=== PATIENT | male | born 1940 | race Caucasian/White ===

== ENCOUNTER 2016-08-13 16:09 | Emergency (ER) | payer MEDICARE, OTHER ==
[2016-08-13] MEDS ORDERED: MORPHINE SULFATE 4 MG INJ IV ONE (17:20)
[2016-08-13] MEDS ORDERED: Sodium Chloride 0.9% 1000 ML 1,000 ML IV STA (17:20)
--- NOTE | 2016-08-13 17:25 | ERPHSYRPT ---
- History of Present Illness Time Seen by Provider: 08/13/16 17:15 Historian: patient Exam Limitations: no limitations Patient Subjective Stated Complaint: PT REPORTS LEFT SIDED KIDNEY PAIN-WORSENS IF PT ATTEMPTS TO EAT-DENIES DIFFICULTY WITH URINATION-DENIES DIFFICULTY WITH BOWELS Triage Nursing Assessment: PT PINK WARM ET DRY-A & O X 3-ABD ROUND ET NONTENDER TO PALP-BOWEL SOUNDS PRESENT Physician History: 75-year-old white male with history of sleep apnea high blood pressure and rheumatoid arthritis He arrives with complaint of pain and left flank worse with eating symptoms since Saturday morning yesterday. He describes pain as aching and sharp he states every time he tries to eat this hurts worse. 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/.Also with a left knee replacement Timing/Duration: yesterday Activities at Onset: none Quality: aching, sharpness Abdominal Pain Onset Location: flank Pain Radiation: no radiation Severity of Pain-Max: moderate Severity of Pain-Current: moderate Modifying Factors: Improves With: nothing Associated Symptoms: back (left flank pain), other (pain left flank when he eats ), No chest pain, No diaphoresis, No diarrhea, No fever/chills, No fatigue, No headache, No heartburn, No loss of appetite, No nausea, No neck pain, No rash, No shortness of breath, No syncope, No testicular pain, No vomiting, No weakness Previous symptoms: no prior history Allergies/Adverse Reactions: celecoxib [From Celebrex] Allergy (Intermediate, Verified 08/13/16 16:37) Rapid Heart Beat bad dreams Home Medications: Atenolol 50 mg [Tenormin 50 mg] 50 mg PO DAILY 02/11/13 [History] Aspirin 81 mg PO DAILY 08/13/16 [History] Meloxicam 7.5 mg [Mobic 7.5 MG] 7.5 mg PO DAILY 08/13/16 [History] Hx Tetanus, Diphtheria Vaccination/Date Given: No Hx Influenza Vaccination/Date Given: Yes Hx Pneumococcal Vaccination/Date Given: No Immunizations Up to Date: Yes - Review of Systems Constitutional: No Fever, No Chills Eyes: No Symptoms Ears, Nose, & Throat: No Symptoms Respiratory: No Cough, No Dyspnea Cardiac: No Chest Pain, No Edema, No Syncope Abdominal/Gastrointestinal: No Abdominal Pain, No Nausea, No Vomiting, No Diarrhea Genitourinary Symptoms: Flank Pain (left flank pain since yesterday) Musculoskeletal: No Back Pain, No Neck Pain Skin: No Rash Neurological: No Dizziness, No Focal Weakness, No Sensory Changes Psychological: No Symptoms Endocrine: No Symptoms All Other Systems: Reviewed and Negative - Past Medical History Pertinent Past Medical History: Yes Neurological History: No Pertinent History ENT History: No Pertinent History Cardiac History: Hypertension Respiratory History: Sleep Apnea Endocrine Medical History: No Pertinent History Musculoskeletal History: Rheumatoid Arthritis GI Medical History: No Pertinent History History: No Pertinent History Psycho-Social History: No Pertinent History Male Reproductive Disorders: No Pertinent History - Past Surgical History Past Surgical History: Yes Neuro Surgical History: No Pertinent History Cardiac: No Pertinent History Respiratory: No Pertinent History Gastrointestinal: Other Genitourinary: No Pertinent History Musculoskeletal: Amputation Male Surgical History: No Pertinent History Other Surgical History: 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 L KNEE REPLACEMENT. - Social History Smoking Status: Never smoker Exposure to second hand smoke: No Drug Use: none Patient Lives Alone: No - Nursing Vital Signs Nursing Vital Signs: Initial Vital Signs Temperature 98.1 F Temperature Source Oral Pulse Rate 70 Respiratory Rate 14 Blood Pressure [] 138/92 Pain Intensity 0 - Physical Exam General Appearance: mild distress Eye Exam: PERRL/EOMI, eyes nml inspection Ears, Nose, Throat Exam: normal ENT inspection, pharynx normal, moist mucous membranes Neck Exam: normal inspection, non-tender, supple, full range of motion Respiratory Exam: normal breath sounds, lungs clear, No respiratory distress Cardiovascular Exam: regular rate/rhythm, normal heart sounds Gastrointestinal/Abdomen Exam: soft, normal bowel sounds, No tenderness, No rebound Back Exam: normal inspection, normal range of motion, CVA tenderness (left flank tenderness) Extremity Exam: normal inspection, normal range of motion, pelvis stable Neurologic Exam: alert, oriented x 3, cooperative, normal mood/affect, nml cerebellar function, sensation nml, No motor deficits Skin Exam: normal color, warm, dry SpO2 Interpretation: normal (98%) SpO2: 98 Oxygen Delivery: Room Air - Course Nursing assessment & vital signs reviewed: Yes - CT Exams Abdomen/Pelvis CT Interpretation: Discussed w/radiologist (CT abdomen and pelvis 3-4 mm left UVJ calculus with 7 mm ureteral prominence and mild hydronephrosis. Additional bilateral renal micral calculi and 5.5 cm right renal cyst. Fatty liver and colonic diverticulosis. Grade to L5 spondylolisthesis with bilateral spondylolysis .) Ordered Tests: Active Orders 24 hr Category Date Time Status IV Insertion STAT Care 08/13/16 17:20 Active ABDOMEN AND PELVIS W/0 CONTRAS [CT] Stat Exams 08/13/16 18:37 Taken AMYLASE Stat Lab 08/13/16 17:41 Completed CBC W DIFF Stat Lab 08/13/16 17:41 Completed CMP Stat Lab 08/13/16 17:41 Completed LIPASE Stat Lab 08/13/16 17:41 Completed UA W/ MICROSCOPIC Stat Lab 08/13/16 18:10 Completed Medication Summary Discontinued Medications Generic Name Dose Route Start Last Admin Trade Name Freq PRN Reason Stop Dose Admin Sodium Chloride 1,000 mls @ 999 mls/hr 08/13/16 17:20 08/13/16 18:09 Sodium Chloride 0.9% 1000 Ml IV 08/13/16 18:20 999 mls/hr .Q1H1M STA Administration Sodium Chloride Confirm 08/13/16 17:54 Sodium Chloride 0.9% 1000 Ml Administered 08/13/16 17:55 Dose 1,000 mls @ ud .ROUTE .STK-MED ONE Morphine Sulfate 4 mg 08/13/16 17:20 08/13/16 18:09 Morphine Sulfate 4 Mg Inj IV 08/13/16 17:21 4 mg STAT ONE Administration Morphine Sulfate Confirm 08/13/16 17:54 Morphine Sulfate 4 Mg Inj Administered 08/13/16 17:55 Dose 4 mg .ROUTE .STK-MED ONE Lab/Rad Data: Laboratory Result Diagrams 08/13/16 17:41 08/13/16 17:41 Laboratory Results 08/13/16 08/13/16 08/13/16 Range/Units 18:10 17:41 17:41 WBC 8.4 (4.0-10.5) K/mm3 RBC 4.74 (4.1-5.6) M/mm3 Hgb 14.5 (12.5-18.0) gm/dl Hct 43.2 (42-50) % MCV 91.1 (78-100) fl MCH 30.6 (26-32) pg MCHC 33.6 (32-36) g/dl RDW 14.3 H (11.5-14.0) % Plt Count 155 (150-450) K/mm3 MPV 9.9 H (6-9.5) fl Gran % 70.5 H (36.0-66.0) % Lymphocytes % 19.9 L (24.0-44.0) % Monocytes % 8.9 (0.0-12.0) % Eosinophils % 0.6 (0.00-5.0) % Basophils % 0.1 (0.0-0.4) % Basophils # 0.01 (0-0.4) Sodium 137 (136-145) mEq/L Potassium 4.0 (3.5-5.1) mEq/L Chloride 103 (98-107) mEq/L Carbon Dioxide 22.3 (21-32) mEq/L Anion Gap 15.6 H (5-15) MEQ/L BUN 28 H (9-20) mg/dL Creatinine 1.55 H (0.55-1.30) mg/dl Estimated GFR 46 ML/MIN Glucose 95 (70-110) MG/DL Calcium 8.7 (8.5-10.1) mg/dL Total Bilirubin 0.4 (0.2-1.0) mg/dL AST 25 (15-37) U/L ALT 22 (12-78) U/L Alkaline Phosphatase 83 (46-116) U/L Serum Total Protein 7.4 (6.4-8.2) gm/dL Albumin 3.3 L (3.4-5.0) g/dL Amylase 45 (25-115) U/L Lipase 133 (73-393) U/L Ur Collection Type CLEAN CATCH Urine Color YELLOW (YELLOW) Urine Appearance CLEAR (CLEAR) Urine pH 6.0 (5-6) Ur Specific [place] >=1.030 (1.005-1.025) Urine Protein TRACE (Negative) Urine Glucose (UA) NEGATIVE (NEGATIVE) mg/dL Urine Ketones SMALL-15 (NEGATIVE) Urine Nitrite NEGATIVE (NEGATIVE) Urine Bilirubin NEGATIVE (NEGATIVE) Urine Urobilinogen 0.2 (0-1) mg/dL Urine WBC (Auto) NEGATIVE (NEGATIVE) Urine RBC (Auto) MODERATE (0-5) Willis/ul Urine Microscopic RBC 50-100 (0-2) /HPF Ur Epithelial Cells FEW (FEW) /HPF Urine Bacteria FEW (NEGATIVE) /HPF Specimen Received [id number] - Progress Progress: improved Progress Note: 08/13/16 19:57 Patient is pain free after morphine 4 mg and a liter of normal saline. Patient's CT abdomen and pelvis shows a 3-4 mm left UVJ calculus with 7 mm prominence of the left ureter with mild hydronephrosis. Will plan to place patient on Flomax 0.4 mg orally daily [place] 5/3/25 #20 one to 2 orally every 4-6 hours as needed for pain. Will have patient contact Dr. Aguilar tomorrow morning to arrange follow-up. Patient is to strain all his urine. He has been advised to return for severe symptoms or intractable pain. - Departure Time of Disposition: 19:59 Departure Disposition: Home Clinical Impression: Left flank pain Urolithiasis Qualifiers: Urinary calculus location: ureter Qualified Code(s): N20.1 - Calculus of ureter Condition: Fair Critical Care Time: No Referrals: DORIS DEL VALLE MD [Primary Care Provider] - STIVEN AGUILAR [COURTESY STAFF] - Instructions: Kidney Stones Additional Instructions: Return home. Plenty of fluids. Strain all urine. [place] 5/325 #20 one to 2 orally every 4-6 hours as needed for pain. Flomax 0.4 mg orally daily #10. Follow-up with Dr. Aguilar tomorrow morning call for an appointment and follow-up. Return for acute distress or for severe symptoms. Return for intractable pain. Or problems Prescriptions: Hydrocodone Bit/Acetaminophen [[place] 5/325Mg] 1 - 2 tab PO Q4-6HPRN PRN #20 tablet PRN Reason: Pain Tamsulosin HCl 0.4 mg [Flomax 0.4 MG] 0.4 mg PO DAILY #10 cap
[2016-08-13 17:51] LABS: BASOPHIL % 0.1 % (0.0-0.4); Eosinophil % 0.6 % (0.00-5.0); Granulocytes % 70.5 % (36.0-66.0); Lymphocytes % 19.9 % (24.0-44.0); Mean Cell Volume 91.1 fl (78-100); Mean Corpuscular Hemoglobin 30.6 pg (26-32); Mean Platelet Volume 9.9 fl (6-9.5); Monocytes % 8.9 % (0.0-12.0); Platelet Count 155 K/mm3 (150-450); Red Blood Count 4.74 M/mm3 (4.1-5.6); Red Cell Distribution Width 14.3 % (11.5-14.0); White Blood Count 8.4 K/mm3 (4.0-10.5)
[2016-08-13] MEDS ORDERED: Sodium Chloride 0.9% 1000 ML 1,000 ML ONE (17:54)
[2016-08-13] MEDS ORDERED: MORPHINE SULFATE 4 MG INJ ONE (17:54)
[2016-08-13 18:04] LABS: ALBUMIN 3.3 g/dL (3.4-5.0); ANION GAP 15.6 MEQ/L (5-15); BILIRUBIN,TOTAL 0.4 mg/dL (0.2-1.0); Carbon Dioxide 22.3 mEq/L (21-32); Total Protein 7.4 gm/dL (6.4-8.2)
[2016-08-13 18:34] LABS: COMPLETE URINE MICROSCOPIC? YES; Collection Type CLEAN CATCH; Epithelial Cells FEW /HPF (FEW)
[2016-08-13 18:35] LABS: Bacteria FEW /HPF (NEGATIVE)
[2016-08-13 19:19] VITALS: BP 138/92; PULSE 70
[2016-08-13 19:52] VITALS: O2SAT 98
--- NOTE | 2016-08-14 08:40 | XRAY ---
Indication: Left flank pain. Hematuria. Multiple contiguous axial images obtained through the abdomen and pelvis without contrast as ordered. Comparison: None Lung bases demonstrates mild bibasilar dependent atelectasis and right infrahilar calcified nodes. Heart is not enlarged. There is a 3-4 mm left UVJ calculus. The proximal ureter is minimally prominent up to 7 mm and there is mild hydronephrosis consistent with partial obstructive uropathy. No perinephric fluid. Additional nonobstructing bilateral renal micro-calculi and a 5.5 cm right renal cyst. Noncontrasted stomach and bowel loops appear nonobstructed. Mild scattered colonic diverticulosis without diverticulitis. Mild fatty liver and chunky benign prostate calcifications. No free fluid/air. Remaining liver, gallbladder, pancreas, spleen, adrenal glands, kidneys, ureters, and bladder appear unremarkable for noncontrast exam. Minimal aortoiliac calcifications without AAA. Osseous structures intact with moderate degenerative changes throughout the spine, L5 spondylolysis with grade 2 spondylolisthesis, and previous right total hip arthroplasty. Impression: 1. 3-4 mm left UVJ calculus producing partial junction as detailed. Additional bilateral renal micro-calculi in incidental right renal cyst. 2. Fatty liver, scattered colonic diverticulosis, and chunky benign prostate calcifications. 3. L5 spondylolysis with grade [address] DI 23.68
== END 2016-08-13 20:09 | disposition home or self-care (01) ==
LOC: ED 16:09
DX: N20.1 Calculus of ureter (principal); R10.9 Unspecified abdominal pain; I10 Essential (primary) hypertension
CPT/HCPCS: 36000; 36415; 74176; 80053; 81000; 82150; 83690; 85025; 96360; 96374; 99283; 99284; J2270

== ENCOUNTER 2022-06-29 22:08 | Observation (INO) | payer MEDICARE, OTHER ==
[2022-06-29] MEDS ORDERED: Sodium Chloride 0.9% 1000 ML 1,000 ML IV SCH (23:00)
[2022-06-29 23:14] LABS: Absolute Neutrophil Ct (ANC) 5.26 x10^3/uL (1.4-6.9); Basophil (Absolute #) 0.03 x10^3/uL (0-0.4); Eosinophil % 0.1 % (0.00-5.0); Eosinophil (Absolute #) 0.01 x10^3/uL (0-0.5); Hematocrit 44.6 % (42-50); Hemoglobin 14.9 g/dL (12.5-18.0); Lymphocyte (Absolute #) 1.32 x10^3/uL (1.0-4.6); Lymphocytes % 17.9 % (24.0-44.0); Mean Cell Volume 96.1 fL (78-100); Mean Corpuscular Hemoglobin 32.1 pg (26-32); Mean Corpuscular Hgb Concent. 33.4 g/dL (32-36); Mean Platelet Volume 10.2 fL (7.5-11.0); Monocyte (Absolute #) 0.74 x10^3/uL (0.0-1.3); Neutrophil % 71.3 % (36.0-66.0); Platelet Count 146 x10^3/uL (150-450); Red Blood Count 4.64 x10^6/uL (4.1-5.6); Red Cell Distribution Width 13.8 % (11.5-14.0); White Blood Count 7.4 x10^3/uL (4.0-10.5)
[2022-06-29 23:36] LABS: D-DIMER QUANTITATIVE 0.39 mg/L (0.0-0.50); INR 1.07 (0.8-3.0); PROTIME 11.3 SECONDS (9.4-12.5); PTT 27.6 SECONDS (25.1-36.5)
[2022-06-29 23:43] LABS: ALKALINE PHOSPHATASE 104 U/L (38-126); AMYLASE 93 U/L (30-110); ANION GAP 9.5 MEQ/L (5-15); BLOOD UREA NITROGEN 21 mg/dL (9-20); CHLORIDE 101 mmol/L (98-107); Calcium 8.2 mg/dL (8.4-10.2); Carbon Dioxide 25 mmol/L (22-30); Creatinine 1 0.91 mg/dL (0.66-1.25); EST GLOMERULAR FILTRATION RATE > 60.0 ML/MIN; Glucose 101 mg/dL (74-106); LIPASE 218 U/L (23-300); MAGNESIUM 2.1 mg/dL (1.6-2.3); NT PRO BNP 928 pg/mL (0-1800); Potassium 3.9 mmol/L (3.5-5.1); SGOT/AST 23 U/L (17-59); SGPT/ALT 21 U/L (0-50); SODIUM 132 mmol/L (137-145); Total Protein 7.6 g/dL (6.3-8.2)
[2022-06-29 23:50] LABS: INFLUENZA A NEGATIVE (NEGATIVE); INFLUENZA B NEGATIVE (NEGATIVE); RESPIRATORY SYNCTIAL VIRUS NEGATIVE (Negative)
[2022-06-30 00:03] LABS: SARS-CoV-2 Xpert Express POSITIVE (NEGATIVE)
--- NOTE | 2022-06-30 00:27 | ERPHSYRPT ---
- History of Present Illness Time Seen by Provider: 06/29/22 22:30 Source: patient, family Patient Subjective Stated Complaint: pt states he has been having cough, congestion since yesterday. had a positive covid home test tonight. Triage Nursing Assessment: pt alert and oriented, answers questions approp. pt ambulatory with steady gait noted. respirations nonlabored with lungs cta. skin warm and dry. nonpitting edema noted to bilat lower ext, pt states is normal for him. lungs cta bilat. occasional hacking cough noted. Physician History: Patient is an 81-year-old white male with a complaint of cough for several days he actually started with cold symptoms yesterday. He has a nonproductive cough he denies any chest pain he denies any shortness of breath. He took a home COVID test and was found to be positive. He has been somewhat dizzy. Timing/Duration: yesterday Cough Quality/Degree: dry cough Possible Cause: illness exposure Modifying Factors: Improves With: nothing Associated Symptoms: fever, cough, dizziness, lightheadedness Allergies/Adverse Reactions: celecoxib [From Celebrex] Allergy (Intermediate, Verified 06/29/22 22:39) Rapid Heart Beat bad dreams Home Medications: Meloxicam 7.5 mg [Mobic 7.5 MG] 15 mg PO DAILY 08/13/16 [History] Loratadine 10 mg [Claritin 10 mg] 10 mg PO DAILY 06/29/22 [History] hydroCHLOROthiazide [Hydrochlorothiazide] 12.5 mg PO DAILY 06/29/22 [History] Hx Tetanus, Diphtheria Vaccination/Date Given: Yes Hx Influenza Vaccination/Date Given: Yes Hx Pneumococcal Vaccination/Date Given: Yes Immunizations Up to Date: Yes Travel Risk - International Travel Have you traveled outside of the country in past 3 weeks: No - Coronavirus Screening Are you exhibiting any of the following symptoms?: Yes Symptoms: Fever, Cough: New Onset, Loss of Taste or Smell, Headaches/Body Aches/Fatigue Close contact with a COVID-19 positive Pt in past 14-21 Days: No - Vaccine Status Have you recieved a Covid-19 vaccination: Yes Tape Stringer: Moderna - Vaccination Dates Date of 2cond Vaccination (if applicable): 08/02/20 - Review of Systems Constitutional: No Fever, No Chills Eyes: No Symptoms Ears, Nose, & Throat: No Symptoms Respiratory: Cough, No Dyspnea Cardiac: No Chest Pain, No Edema, No Syncope Abdominal/Gastrointestinal: No Abdominal Pain, No Nausea, No Vomiting, No Diarrhea Genitourinary Symptoms: No Dysuria Musculoskeletal: No Back Pain, No Neck Pain Skin: No Rash Neurological: No Dizziness, No Focal Weakness, No Sensory Changes Psychological: No Symptoms Endocrine: No Symptoms All Other Systems: Reviewed and Negative - Past Medical History Pertinent Past Medical History: Yes Neurological History: No Pertinent History ENT History: No Pertinent History Cardiac History: Hypertension Respiratory History: Sleep Apnea Endocrine Medical History: No Pertinent History Musculoskeletal History: Rheumatoid Arthritis GI Medical History: No Pertinent History History: Other Psycho-Social History: No Pertinent History Male Reproductive Disorders: No Pertinent History Other Medical History: kidney stones - Past Surgical History Past Surgical History: Yes Neuro Surgical History: No Pertinent History Cardiac: No Pertinent History Respiratory: No Pertinent History Gastrointestinal: Other Genitourinary: No Pertinent History Musculoskeletal: Amputation Male Surgical History: No Pertinent History Other Surgical History: 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 L KNEE REPLACEMENT. bilat hip replacement - Social History Smoking Status: Never smoker Exposure to second hand smoke: No Drug Use: none Patient Lives Alone: No - Nursing Vital Signs Nursing Vital Signs: Initial Vital Signs Temperature 98.8 F 06/29/22 22:16 Pulse Rate 87 06/29/22 22:16 Respiratory Rate 20 06/29/22 22:16 Blood Pressure 129/97 06/29/22 22:16 O2 Sat by Pulse Oximetry 99 06/29/22 22:16 Pain Scale Pain Intensity 0 - Physical Exam General Appearance: mild distress, alert Eye Exam: PERRL/EOMI, eyes nml inspection Ears, Nose, Throat Exam: normal ENT inspection, TMs normal, pharynx normal, moist mucous membranes Neck Exam: normal inspection, non-tender, supple, full range of motion Respiratory Exam: normal breath sounds, lungs clear, No respiratory distress Cardiovascular Exam: irregular, other (Atrial fibs noted on the monitor) Gastrointestinal/Abdomen Exam: soft, No tenderness Back Exam: normal inspection, No CVA tenderness, No vertebral tenderness Extremity Exam: normal inspection, normal range of motion Neurologic Exam: alert, oriented x 3, cooperative, normal mood/affect, sensation nml, No motor deficits Skin Exam: normal color, warm, dry, No rash Lymphatic Exam: No adenopathy SpO2: 96 - Course Nursing assessment & vital signs reviewed: Yes EKG Interpreted by Me: RATE (94), A-fib, NORMAL AXIS, Non-specific ST Changes - Radiology Exams Chest X-ray Interpretation: Interpreted by me, Negative Ordered Tests: Active Orders 24 hr Category Date Time Status Chemical Dependency Nurse STAT Care 06/29/22 23:12 Active EKG-ER Only STAT Care 06/29/22 22:53 Active IV Insertion STAT Care 06/29/22 22:53 Active CHEST 1 VIEW (PORTABLE) Stat Exams 06/29/22 22:54 Taken AMYLASE Stat Lab 06/29/22 23:00 Completed CBC W DIFF Stat Lab 06/29/22 23:00 Completed CMP Stat Lab 06/29/22 23:00 Completed D-DIMER QUANTITATIVE Stat Lab 06/29/22 23:00 Completed LIPASE Stat Lab 06/29/22 23:00 Completed Lactic Acid Stat Lab 06/29/22 22:53 Completed MAGNESIUM Stat Lab 06/29/22 23:00 Completed NT PRO BNP Stat Lab 06/29/22 23:00 Completed PROTIME WITH INR Stat Lab 06/29/22 23:00 Completed PTT Stat Lab 06/29/22 23:00 Completed TROPONIN Q4H Lab 06/29/22 23:00 Completed TROPONIN Q4H Lab 06/30/22 03:00 Ordered TROPONIN Q4H Lab 06/30/22 07:00 Ordered TSH [TSH, 3RD Generation] Stat Lab 06/29/22 22:30 Completed UA W/RFX UR CULTURE Stat Lab 06/29/22 22:54 Ordered Medication Summary Generic Name Dose Route Start Last Admin Trade Name Juanq PRN Reason Stop Dose Admin Sodium Chloride 1,000 mls @ 100 mls/hr 06/29/22 23:00 06/29/22 23:05 Sodium Chloride 0.9% 1000 Ml IV 07/29/22 22:59 100 mls/hr .Q10H MARY JO Administration Lab/Rad Data: Laboratory Result Diagrams 06/29/22 23:00 06/29/22 23:00 Laboratory Results 06/29/22 06/29/22 06/29/22 Range/Units 23:00 23:00 23:00 WBC (4.0-10.5) x10^3/uL RBC (4.1-5.6) x10^6/uL Hgb (12.5-18.0) g/dL Hct (42-50) % MCV (78-100) fL MCH (26-32) pg MCHC (32-36) g/dL RDW (11.5-14.0) % Plt Count (150-450) x10^3/uL MPV (7.5-11.0) fL Gran % (36.0-66.0) % Immature Gran % (Auto) (0.00-0.4) % Nucleat RBC Rel Count (0.00-0.1) % Eos # (Auto) (0-0.5) x10^3/uL Immature Gran # (Auto) (0.00-0.03) x10^3u/L Absolute Lymphs (auto) (1.0-4.6) x10^3/uL Absolute Monos (auto) (0.0-1.3) x10^3/uL Absolute Nucleated RBC (0.00-0.01) x10^3u/L Lymphocytes % (24.0-44.0) % Monocytes % (0.0-12.0) % Eosinophils % (0.00-5.0) % Basophils % (0.0-0.4) % Absolute Granulocytes (1.4-6.9) x10^3/uL Basophils # (0-0.4) x10^3/uL PT 11.3 (9.4-12.5) SECONDS INR 1.07 (0.8-3.0) APTT 27.6 (25.1-36.5) SECONDS D-Dimer 0.39 (0.0-0.50) mg/L Sodium (137-145) mmol/L Potassium (3.5-5.1) mmol/L Chloride (98-107) mmol/L Carbon Dioxide (22-30) mmol/L Anion Gap (5-15) MEQ/L BUN (9-20) mg/dL Creatinine (0.66-1.25) mg/dL Estimated GFR ML/MIN Glucose (74-106) mg/dL Lactic Acid (0.4-2.0) Calcium (8.4-10.2) mg/dL Magnesium (1.6-2.3) mg/dL Total Bilirubin (0.2-1.3) mg/dL AST (17-59) U/L ALT (0-50) U/L Alkaline Phosphatase (38-126) U/L Troponin I 0.017 (0.000-0.034) ng/mL NT-Pro-B Natriuret Pep (0-1800) pg/mL Serum Total Protein (6.3-8.2) g/dL Albumin (3.5-5.0) g/dL Amylase (30-110) U/L Lipase (23-300) U/L TSH 3rd Generation (0.47-4.68) mIU/L Influenza Type A Ag NEGATIVE (NEGATIVE) Influenza Type B Ag NEGATIVE (NEGATIVE) RSV (PCR) NEGATIVE (Negative) SARS-CoV-2 (PCR) POSITIVE A (NEGATIVE) 06/29/22 06/29/22 06/29/22 Range/Units 23:00 23:00 22:53 WBC 7.4 (4.0-10.5) x10^3/uL RBC 4.64 (4.1-5.6) x10^6/uL Hgb 14.9 (12.5-18.0) g/dL Hct 44.6 (42-50) % MCV 96.1 (78-100) fL MCH 32.1 H (26-32) pg MCHC 33.4 (32-36) g/dL RDW 13.8 (11.5-14.0) % Plt Count 146 L (150-450) x10^3/uL MPV 10.2 (7.5-11.0) fL Gran % 71.3 H (36.0-66.0) % Immature Gran % (Auto) 0.3 (0.00-0.4) % Nucleat RBC Rel Count 0.0 (0.00-0.1) % Eos # (Auto) 0.01 (0-0.5) x10^3/uL Immature Gran # (Auto) 0.02 (0.00-0.03) x10^3u/L Absolute Lymphs (auto) 1.32 (1.0-4.6) x10^3/uL Absolute Monos (auto) 0.74 (0.0-1.3) x10^3/uL Absolute Nucleated RBC 0.00 (0.00-0.01) x10^3u/L Lymphocytes % 17.9 L (24.0-44.0) % Monocytes % 10.0 (0.0-12.0) % Eosinophils % 0.1 (0.00-5.0) % Basophils % 0.4 (0.0-0.4) % Absolute Granulocytes 5.26 (1.4-6.9) x10^3/uL Basophils # 0.03 (0-0.4) x10^3/uL PT (9.4-12.5) SECONDS INR (0.8-3.0) APTT (25.1-36.5) SECONDS D-Dimer (0.0-0.50) mg/L Sodium 132 L (137-145) mmol/L Potassium 3.9 (3.5-5.1) mmol/L Chloride 101 (98-107) mmol/L Carbon Dioxide 25 (22-30) mmol/L Anion Gap 9.5 (5-15) MEQ/L BUN 21 H (9-20) mg/dL Creatinine 0.91 (0.66-1.25) mg/dL Estimated GFR > 60.0 ML/MIN Glucose 101 (74-106) mg/dL Lactic Acid 0.8 (0.4-2.0) Calcium 8.2 L (8.4-10.2) mg/dL Magnesium 2.1 (1.6-2.3) mg/dL Total Bilirubin 0.80 (0.2-1.3) mg/dL AST 23 (17-59) U/L ALT 21 (0-50) U/L Alkaline Phosphatase 104 (38-126) U/L Troponin I (0.000-0.034) ng/mL NT-Pro-B Natriuret Pep 928 (0-1800) pg/mL Serum Total Protein 7.6 (6.3-8.2) g/dL Albumin 4.0 (3.5-5.0) g/dL Amylase 93 (30-110) U/L Lipase 218 (23-300) U/L TSH 3rd Generation (0.47-4.68) mIU/L Influenza Type A Ag (NEGATIVE) Influenza Type B Ag (NEGATIVE) RSV (PCR) (Negative) SARS-CoV-2 (PCR) (NEGATIVE) 06/29/22 Range/Units 22:30 WBC (4.0-10.5) x10^3/uL RBC (4.1-5.6) x10^6/uL Hgb (12.5-18.0) g/dL Hct (42-50) % MCV (78-100) fL MCH (26-32) pg MCHC (32-36) g/dL RDW (11.5-14.0) % Plt Count (150-450) x10^3/uL MPV (7.5-11.0) fL Gran % (36.0-66.0) % Immature Gran % (Auto) (0.00-0.4) % Nucleat RBC Rel Count (0.00-0.1) % Eos # (Auto) (0-0.5) x10^3/uL Immature Gran # (Auto) (0.00-0.03) x10^3u/L Absolute Lymphs (auto) (1.0-4.6) x10^3/uL Absolute Monos (auto) (0.0-1.3) x10^3/uL Absolute Nucleated RBC (0.00-0.01) x10^3u/L Lymphocytes % (24.0-44.0) % Monocytes % (0.0-12.0) % Eosinophils % (0.00-5.0) % Basophils % (0.0-0.4) % Absolute Granulocytes (1.4-6.9) x10^3/uL Basophils # (0-0.4) x10^3/uL PT (9.4-12.5) SECONDS INR (0.8-3.0) APTT (25.1-36.5) SECONDS D-Dimer (0.0-0.50) mg/L Sodium (137-145) mmol/L Potassium (3.5-5.1) mmol/L Chloride (98-107) mmol/L Carbon Dioxide (22-30) mmol/L Anion Gap (5-15) MEQ/L BUN (9-20) mg/dL Creatinine (0.66-1.25) mg/dL Estimated GFR ML/MIN Glucose (74-106) mg/dL Lactic Acid (0.4-2.0) Calcium (8.4-10.2) mg/dL Magnesium (1.6-2.3) mg/dL Total Bilirubin (0.2-1.3) mg/dL AST (17-59) U/L ALT (0-50) U/L Alkaline Phosphatase (38-126) U/L Troponin I (0.000-0.034) ng/mL NT-Pro-B Natriuret Pep (0-1800) pg/mL Serum Total Protein (6.3-8.2) g/dL Albumin (3.5-5.0) g/dL Amylase (30-110) U/L Lipase (23-300) U/L TSH 3rd Generation 2.100 (0.47-4.68) mIU/L Influenza Type A Ag (NEGATIVE) Influenza Type B Ag (NEGATIVE) RSV (PCR) (Negative) SARS-CoV-2 (PCR) (NEGATIVE) - Progress Progress: unchanged Air Movement: good Blood Culture(s) Obtained: No Antibiotics given: No Discussed with : Gita Will see patient in: hospital (observation) - Departure Departure Disposition: Observation Clinical Impression: New onset atrial fibrillation, COVID Condition: Stable Critical Care Time: No Referrals: DORIS DEL VALLE MD [Primary Care Provider] - Follow up/PCP as directed
[2022-06-30] MEDS: Sodium Chloride 0.9% 1000 ML 1,000 ML IV SCH ×3 (01:32→20:00)
[2022-06-30 01:38] LABS: Appearance Clear (Clear); Bacteria None Seen /HPF (None Seen); Bilirubin Negative (Negative); Blood Negative (Negative); Epithelial Cells None Seen /HPF (None Seen); Glucose Negative (Negative); Hyaline Casts 0-2 /LPF (0-2); Ketones Negative (Negative); Leukocyte Esterase Negative (Negative); Nitrite Negative (Negative); Protein,Urine Dip Negative (Negative); RBC 0-2 /HPF (0-5); WBC 0-2 /HPF (0-5)
[2022-06-30 01:39] LABS: ADD URINE CULTURE? NO (NO)
--- NOTE | 2022-06-30 07:59 | XRAY ---
Indication: Cough and congestion. Positive Covid 19. Comparison: May 13, 2014 Portable apical lordotic chest remains clear again with a few incidental tiny calcified granulomas. Heart not enlarged. Bony thorax intact. No new/acute findings.
[2022-06-30] MEDS ORDERED: ELIQUIS 2.5 MG TABLET PO SCH (10:00)
[2022-06-30] MEDS: ceLEXa 20 MG PO SCH (13:47)
[2022-06-30] MEDS: hydroDIURIL 25 MG PO SCH (13:47)
[2022-06-30] MEDS: ELIQUIS 2.5 MG TABLET PO SCH ×2 (13:47→21:56)
[2022-06-30] MEDS: CLARITIN 10 MG PO SCH (13:47)
[2022-06-30] MEDS: MELOXICAM PO SCH (13:48)
[2022-06-30] MEDS: PAXLOVID 300-100 MG PACK (EUA) PO SCH ×2 (13:48→21:56)
[2022-06-30] MEDS: DECADRON 10MG INJ. IV SCH (13:48)
[2022-07-01] MEDS: Sodium Chloride 0.9% 1000 ML 1,000 ML IV SCH (05:06)
[2022-07-01 06:28] LABS: Hematocrit 45.1 % (42-50); Hemoglobin 15.1 g/dL (12.5-18.0); Mean Cell Volume 96.4 fL (78-100); Mean Corpuscular Hemoglobin 32.3 pg (26-32); Mean Corpuscular Hgb Concent. 33.5 g/dL (32-36); Mean Platelet Volume 9.9 fL (7.5-11.0); Platelet Count 141 x10^3/uL (150-450); Red Blood Count 4.68 x10^6/uL (4.1-5.6); Red Cell Distribution Width 13.5 % (11.5-14.0); White Blood Count 4.9 x10^3/uL (4.0-10.5)
[2022-07-01 06:53] LABS: ALBUMIN 3.8 g/dL (3.5-5.0); ALKALINE PHOSPHATASE 81 U/L (38-126); ANION GAP 9.6 MEQ/L (5-15); BLOOD UREA NITROGEN 19 mg/dL (9-20); CHLORIDE 103 mmol/L (98-107); Calcium 7.7 mg/dL (8.4-10.2); Carbon Dioxide 25 mmol/L (22-30); Creatinine 1 0.81 mg/dL (0.66-1.25); EST GLOMERULAR FILTRATION RATE > 60.0 ML/MIN; Glucose 134 mg/dL (74-106); Potassium 3.7 mmol/L (3.5-5.1); SGOT/AST 25 U/L (17-59); SGPT/ALT 23 U/L (0-50); SODIUM 134 mmol/L (137-145); Total Protein 7.4 g/dL (6.3-8.2)
[2022-07-01 06:59] VITALS: O2SAT 94
[2022-07-01] MEDS: ceLEXa 20 MG PO SCH (09:00)
[2022-07-01] MEDS: DECADRON 10MG INJ. IV SCH (09:00)
[2022-07-01] MEDS: MELOXICAM PO SCH (09:01)
[2022-07-01] MEDS: hydroDIURIL 25 MG PO SCH (09:01)
[2022-07-01] MEDS: CLARITIN 10 MG PO SCH (09:02)
[2022-07-01] MEDS: ELIQUIS 2.5 MG TABLET PO SCH (09:02)
[2022-07-01] MEDS: PAXLOVID 300-100 MG PACK (EUA) PO SCH (09:03)
[2022-07-01] MEDS ORDERED: NON-FORMULARY ITEM (Citalopram Hydrobromide [Celexa] 10 MG Tablet) PO SCH (10:00)
[2022-07-01] MEDS ORDERED: NON-FORMULARY ITEM (Hydrochlorothiazide [Hydrochlorothiazide] 12.5 MG Capsule) PO SCH (10:00)
[2022-07-01 12:12] VITALS: BP 145/85; PULSE 80
[2022-07-02] MEDS ORDERED: PAXLOVID 300-100 MG PACK (EUA) PO SCH (10:00)
== END 2022-07-01 12:46 | disposition home or self-care (01) ==
LOC: ED 22:08 → MED SURG 06-30 01:13
PROVIDERS: ADMIT Family Medicine; ATTEND Family Medicine
DX: U07.1 COVID-19 (principal); I48.91 Unspecified atrial fibrillation; R60.0 Localized edema; I10 Essential (primary) hypertension; Z79.899 Other long term (current) drug therapy; Z20.828 Contact with and (suspected) exposure to other viral communicable diseases
CPT/HCPCS: 0241U; 36000; 36415; 71045; 80053; 81001; 82150; 83605; 83690; 83735; 83880; 84443; 84484; 85025; 85027; 85379; 85610; 85730; 93005; 93041; 93268; 94660; 94762; 96360; 96361; 99284; G0378; J1100; A9270-GY